=== PATIENT | female | born 1955 | race Two or more races ===

== ENCOUNTER 2025-01-06 10:03 | Outpatient (CLI) | payer OTHER | END 2025-01-06 10:06 | disposition home or self-care (01) | LOC: SONOGRAMA 10:03 | PROVIDERS: ATTEND Specialist | DX: D17.24 Benign lipomatous neoplasm of skin and subcutaneous tissue of left leg (principal) ==

== ENCOUNTER 2025-01-19 05:27 | Day surgery (SDC) | payer OTHER ==
[2025-01-15 10:54] VITALS: BP 124/80
[2025-01-15 10:54] LABS: URINE APPEARANCE Clear; URINE BILIRRUBIN Negative (NEGATIVE); URINE BLOOD Negative; URINE COLOR Yellow; URINE GLUCOSE Negative (NEGATIVE); URINE KETONE Trace (NEGATIVE); URINE LEUKOCYTE Trace; URINE NITRATE Negative; URINE PROTEIN Negative (NEGATIVE); URINE UROBILINOGEN 0.2 E.U./dl
[2025-01-15 10:58] LABS: URINE BACTERIA 20.8 uL (0.0-1933); URINE EPITHELIAL CELLS 4.7 uL (0.0-38.8); URINE RBC 6.7 uL (0.0-20.8); URINE WBC 4.1 uL (0.0-23.2)
[2025-01-15 10:59] LABS: BASO % 0.6 % (0.1-1.2); EOS # 0.14 (0.04-0.54); HEMATOCRIT 39.5 % (34.1-44.9); HEMOGLOBIN 13.4 g/dL (11.2-15.7); LYMPH % 33.3 % (19.3-53.1); MEAN CORPUSCULAR HEMOGLOBIN 30.9 pg (25.6-32.2); MONO # 0.54 (0.24-0.82); MONO % 7.8 % (4.7-12.5); NEUT # 3.88 (1.56-6.13); NEUT % 56.2 % (34.0-71.1); PLATELET COUNT 341 K/uL (163-369); RED BLOOD COUNT 4.34 M/uL (3.93-5.22); RED CELL DISTRIBUTION WIDTH 13.4 % (11.6-14.4)
[2025-01-15 11:17] LABS: INR 0.98; PARTIAL THROMBOPLASTIN TIME 31.4 SECONDS (22.0-34.0); PROTHROMBIN TIME 10.7 SECONDS (9.0-11.5)
[2025-01-15 11:22] LABS: URINE CAST 0.29 uL (0.0-1.40)
[2025-01-15 11:57] LABS: ALBUMIN 3.8 gm/dL (3.4-5.0); BILIRUBIN TOTAL 0.42 mg/dL (0.3-1.2); CALCIUM 9.1 mg/dL (8.5-10.1); CREATININE SERUM 0.96 mg/dL (0.55-1.02); GFR 57.8; GLOBULINA 3.5 G/DL (2.4-3.5); POTASSIUM 4.52 mEq/L (3.5-5.1); TOTAL PROTEIN 7.3 gm/dL (6.4-8.2)
[~2025-01-19] VITALS: Ht 157.5 cm; Wt 65.8 kg
[~2025-01-19 05:27] MED LIST: AZOR 5-20 MG T1 EACH; LOTENSIN HCT 21 EAC1; ZETIA10 MG
[2025-01-19] MEDS ORDERED: CEFAZOLIN SODIUM 1,000 MG VIAL ONE ×2 (09:48→14:37)
[2025-01-19] MEDS ORDERED: LIDOCAINE HCL 1% 10ML VIAL ONE (11:45)
[2025-01-19] MEDS ORDERED: LIDOCAINE HCL 1%/EPINEPHRINE 20ML VIAL IJ ONE (11:46)
[2025-01-19] MEDS ORDERED: CEFAZOLIN SODIUM 1,000 MG VIAL IV SCH (13:00)
== END 2025-01-19 15:55 | disposition home or self-care (01) ==
LOC: CIR.AMB 05:27
PROVIDERS: ATTEND Specialist
DX: D17.24 Benign lipomatous neoplasm of skin and subcutaneous tissue of left leg (principal)